=== PATIENT | female | born 1965 | race Caucasian/White ===

== ENCOUNTER 2018-08-16 15:28 | Emergency (ER) | payer OTHER ==
[2018-08-16 15:43] VITALS: BP 162/97; TEMP 97.9; O2SAT 97
--- NOTE | 2018-08-16 16:11 | RAD ---
EXAM DESCRIPTION: Ankle,Left 3 Views CLINICAL HISTORY: 52 years Female, twisted, lateral swelling COMPARISON: None available. TECHNIQUE: AP, oblique and lateral radiographs. FINDINGS: The visualized bones appear well mineralized. No acute fracture or dislocation. The ankle mortise is intact. Plantar calcaneal spur is noted. Soft tissue swelling is noted along the lateral aspect of the ankle. IMPRESSION: Soft tissue swelling is noted along the lateral aspect of the ankle. No underlying acute bony abnormality. Electronically signed by: Sirena Tovar MD 08/16/2018 4:09 PM CDT
--- NOTE | 2018-08-16 16:18 | ED.PDOC ---
History of Present Illness - General Chief Complaint: Lower Extremity Injury Stated Complaint: left ankle injury and pain Time Seen by Provider: 08/16/18 15:34 Source: patient Exam Limitations: no limitations - History of Present Illness Initial Comments: the patient is a 52-year-old female presenting to emergency room secondary to hurting her left ankle while walking downhill. This occurred for 5 hours ago. She has significant swelling to the lateral aspect as well as tenderness there. No tenderness or deformity or swelling elsewhere. No other injuries. She is neurovascularly intact. No bony crepitus. Timing/Duration: 4-6 hours Severity: moderate Improving Factors: immobilization Worsening Factors: movement Associated Symptoms: denies symptoms Allergies/Adverse Reactions: Allergies NO KNOWN ALLERGY Allergy (Verified 08/16/18 15:42) Home Medications: Ambulatory Orders Pantoprazole Sodium 40 mg PO DAILY 08/16/18 Review of Systems - Review of Systems Constitutional: States: no symptoms reported EENTM: States: no symptoms reported Respiratory: States: no symptoms reported Cardiology: States: no symptoms reported Gastrointestinal/Abdominal: States: no symptoms reported Genitourinary: States: no symptoms reported Musculoskeletal: States: see HPI Skin: States: no symptoms reported Neurological: States: no symptoms reported Endocrine: States: no symptoms reported All other Systems: No Change from Baseline Past Medical History (General) - Patient Medical History Hx Stroke: No Hx Congestive Heart Failure: No Hx Diabetes: No Hx Gastroesophageal Reflux: Yes - Vaccination History Hx Influenza Vaccination: No Hx Pneumococcal Vaccination: No - Social History Hx Tobacco Use: No - Female History Patient is a Female of Child Bearing Age (10 -59 yrs old): Yes Family Medical History - Family History Mother Family History: Unknown Living Status: Unknown Physical Exam - Physical Exam General Appearance: Alert, Comfortable, No apparent distress Eye Exam: bilateral normal Ears, Nose, Throat: hearing grossly normal Neck: full range of motion Respiratory: no respiratory distress, no accessory muscle use Cardiovascular/Chest: normal peripheral pulses, no edema Peripheral Pulses: dorsalis pedis,right: 2+, dorsalis pedis,left: 2+, posterior tibialis,right: 2+, posterior tibialis,left: 2+ Gastrointestinal/Abdominal: other - obese Rectal Exam: deferred Extremity: normal range of motion, no pedal edema, no calf tenderness, normal capillary refill, swelling - left lateral ankle Neurologic: [employer] II-XII nml as tested, no motor/sensory deficits, alert, normal mood/affect, oriented x 3 Skin Exam: normal color Comments: Vital Signs - 24 hr 08/16/18 15:39 Temperature 97.9 F Pulse Rate [ 113 H Left Brachial] Respiratory 20 Rate Blood Pressure 162/97 [Left Arm] O2 Sat by Pulse 97 Oximetry Progress - Progress Progress: 08/16/18 16:18 The patient is a 52-year-old female presenting with a left lateral ankle sprain. The patient will be placed in a walking boot to prevent further injury. Mjva-[id number] medicines such as Tylenol and ibuprofen can help. She does probably need to wear the boot for at least 3 weeks. X-ray shows no evidence of any fracture or current dislocation. ER warnings were given. Departure - Departure Clinical Impression: Moderate left ankle sprain Qualifiers: Encounter type: initial encounter Qualified Code(s): S93.402A - Sprain of unspecified ligament of left ankle, initial encounter Disposition: Discharge to Home or Self Care Condition: Fair Departure Forms: ED Discharge - Pt. Copy, Patient Portal Self Enrollment Diet: regular diet Activity: increase activity as tolerated - use the walking boot Home Medications: Ambulatory Orders Pantoprazole Sodium 40 mg PO DAILY 08/16/18 Additional Instructions: The patient is a 52-year-old female presenting with a left lateral ankle sprain. The patient will be placed in a walking boot to prevent further injury. [id number] medicines such as Tylenol and ibuprofen can help. She does probably need to wear the boot for at least 3 weeks. X-ray shows no evidence of any fracture or current dislocation. ER warnings were given.
== END 2018-08-16 16:39 | disposition home or self-care (01) ==
LOC: ER 15:28
DX: S93.402A Sprain of unspecified ligament of left ankle, initial encounter (principal); K21.9 Gastro-esophageal reflux disease without esophagitis; X58.XXXA Exposure to other specified factors, initial encounter; Y93.01 Activity, walking, marching and hiking; Y92.89 Other specified places as the place of occurrence of the external cause